=== PATIENT | male | born 1970 | race African-American/Black ===

== ENCOUNTER 2023-08-29 08:11 | Emergency (ER) | payer BC, SELFPAY ==
[2023-08-29 08:15] VITALS: BP 175/109
[2023-08-29 08:35] VITALS: BMI 45.8
--- NOTE | 2023-08-29 08:48 | ED.GENMED ---
History of Present Illness
General
Chief Complaint: Abdominal Symptoms
Source: patient
Exam Limitations: none
Time Seen by Provider: 08/29/23 08:36
Nursing documentation reviewed up to this point in time: agreed with
Travel History
Have you had any contact with someone who has COVID-19?: No
Do you have any symptoms of coronavirus? Fever > 100 degrees, chills, cough, shortness of breath, sore throat, loss of taste or smell, muscle aches, or headache?: No
History of Present Illness
History of Present Illness:
Patient presents ED secondary to persistent nausea, vomiting, and nonbloody diarrhea over the past 2 days. Symptoms started, on approximately 1 hour after having anitpasta purchased at a restaurant, which was not shared with family. Denies sick
contact. Denies fever or chills. Denies recent change in medications. Patient does report lower abdominal cramping sensation over the past 24 hours. This morning, when he got up to go to work, patient felt lightheaded with weakness, along with
additional episode of diarrhea. Of note, family just returned from vacationing in [place] last week. No illness noted during that time.
Review of Systems
Review of Systems
Allergies reviewed?: Yes
All Other Systems: ROS reviewed and negative except as documented in HPI and ROS
Constitutional: Reports no symptoms; Denies fever or chills
Respiratory: Reports no symptoms; Denies trouble breathing
Cardiac: Reports no symptoms; Denies chest pain
ABD/GI: Reports abdominal pain, nausea, vomiting and diarrhea; Denies bloody stools
: Reports no symptoms
Musculoskeletal: Reports no symptoms
Skin: Reports no symptoms
Neurological: Reports dizzy and weakness
Phy Exam
Physical Exam
Physical Exam:
Physical Exam
General: mild distress, not acutely ill. afebrile. overweight.
Head: nc/at. eomi
Neck: supple. no meningeal signs.
Heart: s1/s2 regular rate and rhythm, no murmur. equal radial pulses.
Lungs: no acute respiratory distress. clear bilaterally
Abdomen: normal bowel sounds. not tender.
Neuro: alert and oriented. no focal neurological deficits
Skin: no rash
Psychiatric: well kept. interactive and cooperative
Extremities: no edema. no calf tenderness.
Course
Orders/Labs/Results
Orders:
Orders
08/29/23 08:48
0.9% Sodium Chloride 1000 ml [Nss] 1,000 ml IV BOLUS
08/29/23 08:52
Complete Blood Count/With Diff Urgent
Comprehensive Metabolic Panel Urgent
Magnesium Urgent
08/29/23 09:40
Potassium Chloride [KCl] 40 meq PO NOW STA
Abnormal Lab Results
08/29/23
08:52
WBC 11.7 H 10^3/uL
(4.8-10.8)
Hct 36.0 L %
(39.0-52.0)
MCV 74.8 L fL
(80.0-94.0)
RDW 14.7 H %
(11.5-14.5)
MPV 10.7 H fL
(7.4-10.4)
Abs Immat Gran (auto) 0.1 H 10^3/uL
(0-0.05)
Absolute Neuts (auto) 9.7 H 10^3/uL
(1.4-6.5)
Absolute Monos (auto) 0.7 H 10^3/uL
(0.1-0.6)
Neutrophils % 82.4 H %
(42.2-75.2)
Lymphocytes % 10.8 L %
(20.5-51.1)
Sodium 133 L mmol/L
(135-145)
Potassium 3.0 L mmol/L
(3.5-5.1)
Glucose 131 H mg/dl
(70-99)
Calcium 8.0 L mg/dl
(8.4-10.2)
08/29/23 08:52
08/29/23 08:52
Vital Signs
Initial and Last Documented VS:
Initial Vital Signs
Temp Pulse Resp BP Pulse Ox
98.3 F 107 16 175/109 98
08/29/23 08:15 08/29/23 08:15 08/29/23 08:15 08/29/23 08:15 08/29/23 08:15
Last Documented Vital Signs
Temp Pulse Resp BP Pulse Ox
98.3 F 96 16 163/79 97
08/29/23 08:15 08/29/23 10:13 08/29/23 10:13 08/29/23 10:13 08/29/23 10:13
MDM/Problems Addressed
MDM/Problems Addressed:
History and exam consistent with nonspecific diarrhea. Blood work results reviewed and discussed with patient, including hypokalemia. Patient reports overall improvement symptoms after treatment, including normalization of initial tachycardia.
Patient otherwise is afebrile, hemodynamically stable, and nontoxic-appearing, at time of discharge, to the care of of his family. Advised continual hydration at home along with potassium supplementation, as well as repeat blood work within the
next 1 to 2 weeks with his primary care physician. Advised to return to ED with worsening symptoms.
Stool culture pending.
*Critical Care Note
Total Time (30-74mins, 75-104mins- exclusive of procedures): Not Applicable
ED Attending Note
-
Portions of this chart may have been created with voice recognition software.� Occasional wrong word or��sound alike� substitutions may have occurred due to the inherent limitations of voice recognition software.
Discharge Plan
Departure
Patient Disposition: Home (Routine Discharge)
Date of Disposition: 08/29/23
Time of Disposition: 10:45
Patient with high blood pressure during this ER visit?: Yes
Discharge Problem:
Diarrhea, Acute hypokalemia, Dehydration
Instructions: Diarrhea in adolescents and adults, Hypokalemia (DC), High Potassium Diet
Prescriptions:
New
ondansetron 4 mg Tablet,Disintegrating
4 mg PO TIDPRN PRN (Reason: nausea/vomiting) Qty: 12 0RF
Referrals:
Matty Whitmore MD [Family Provider] -
Stand Alone Forms: Return to Work
Activity Restrictions/Additional Instructions:
As discussed, please follow-up with your primary care physician for reevaluation, including repeat blood work in 1-2 weeks. Your prescription has been sent electronically to [facility] in [place].
Interventions
Interventions:
*Risk Screen - Suicide Last Done: 08/29/23 08:33
*General Assessment Last Done: 08/29/23 08:32
*Neglect/Abuse Screening Last Done: 08/29/23 08:33
ED- Fall Risk Assessment Last Done: 08/29/23 08:36
*ED COVID-19 Vaccine History Last Done: 08/29/23 08:15
*Nursing Disposition Last Done: 08/29/23 10:54
VV-Fyeuee-Bcryqawnlb Assessment Last Done: 08/29/23 08:36
Discharge Date and Time
Discharge Date/Time: 08/29/23 10:55
Print Language: WOLOF
[2023-08-29] MEDS: NSS 1000 IV (08:57)
[2023-08-29 09:14] LABS: % Basophils 0.2 % (0-2); % Immature Granulocytes 0.5 % (0-0.5); % Lymphocytes 10.8 % (20.5-51.1); % Monocytes 6.1 % (1.7-9.3); % Neutrophils 82.4 % (42.2-75.2); Absolute Immature Granulocytes 0.1 10^3/uL (0-0.05); Absolute Lymphocytes 1.3 10^3/uL (1.2-3.4); Absolute Monocytes 0.7 10^3/uL (0.1-0.6); Absolute Neutrophils 9.7 10^3/uL (1.4-6.5); Hemoglobin 13.2 g/dL (13.0-18.0); Mean Corp Hgb Conc. 36.7 g/dL (33.0-37.0); Mean Corpuscular Hgb 27.4 pg (27.0-31.0); Mean Corpuscular Volume 74.8 fL (80.0-94.0); Mean Platelet Volume 10.7 fL (7.4-10.4); Nucleated Red Blood Cells % 0 % (-); Platelet Count 239 10^3/uL (130-400); Red Blood Cell Count 4.81 10^6/uL (4.70-6.10); Red Cell Dist. Width 14.7 % (11.5-14.5); White Blood Cell Count 11.7 10^3/uL (4.8-10.8)
[2023-08-29 09:27] LABS: ALT (SGPT) 34 U/L (0-50); AST (SGOT) 35 U/L (17-59); Albumin 3.7 g/dl (3.5-5.0); Alkaline Phosphatase 67 U/L (38-126); Blood Urea Nitrogen 14 mg/dl (9-20); Carbon Dioxide 25 mmol/L (22-30); Chloride 98 mmol/L (98-107); Estimated Creatinine Clearance > 125 ml/min; Glucose 131 mg/dl (70-99); Magnesium 1.7 mg/dl (1.6-2.3); Sodium 133 mmol/L (135-145); Total Bilirubin 0.6 mg/dl (0.2-1.3); Total Protein 7.8 g/dl (6.3-8.2); eGFR > 60.00
[2023-08-29] MEDS: KCL 40 MEQ PO (10:10)
[2023-08-29 10:13] VITALS: BP 163/79
== END 2023-08-29 10:55 | disposition home or self-care (01) ==
LOC: EMR 08:11
PROVIDERS: EMERGENCY PHYSICIAN Emergency Medicine; FAMILY PHYSICIAN Family Medicine
DX: E86.0 Dehydration (principal); E87.6 Hypokalemia; R19.7 Diarrhea, unspecified; R11.2 Nausea with vomiting, unspecified; R10.30 Lower abdominal pain, unspecified; R03.0 Elevated blood-pressure reading, without diagnosis of hypertension; R00.0 Tachycardia, unspecified
CPT/HCPCS: 99284; 96360; 80053; 83735; 85025